=== PATIENT | female | born 1980 | race Two or more races ===

== ENCOUNTER 2017-04-18 07:21 | Emergency (ER) | payer SELFPAY ==
[2017-04-18 07:31] VITALS: BP 114/74
--- NOTE | 2017-04-18 07:51 | ER Document Report ---
HPI - HPI Patient complains to provider of: cough, congestion, knot in throat Onset: Other - friday Onset/Duration: Gradual Pain Level: 4 Context: 37 yo non smoker with congestion and cough with knot in throat since friday, progressively worse. Hurts to cougn, coughing all night. No bleeding or bruising. [employer] WORK[employer]: [employer] , Lupus, Associated Symptoms: Productive cough - iliamna green, Sinus pain/drainage. 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 Lives with: Spouse/Significant other Family History: Reviewed & Not Pertinent Patient has suicidal ideation: No Patient has homicidal ideation: No - Past Medical History Cardiac Medical History: Reports: Other - 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 , resolved 2009 Pulmonary Medical History: Reports: Hx Pneumonia - 03/2015 Renal/ Medical History: Denies: Hx Peritoneal Dialysis Psychiatric Medical History: Reports: Hx Anxiety, Hx Attention Deficit Hyperactivity Disorder, Hx Depression Past Surgical History: Reports: Hx Adenoidectomy, Hx Section, Hx Cholecystectomy, Hx Hysterectomy, Hx Myringotomy, Hx Tonsillectomy, Hx Tubal Ligation - Immunizations Immunizations up to date: Yes Hx Diphtheria, Pertussis, Tetanus Vaccination: Yes Hx Pneumococcal Vaccination: 04/23/15 Vertical Provider Document - CONSTITUTIONAL Agree With Documented VS: Yes Exam Limitations: No Limitations General Appearance: No Apparent Distress - INFECTION CONTROL TRAVEL OUTSIDE OF THE [place] IN LAST 30 DAYS: No - HEENT HEENT: Normocephalic, Pharyngeal Erythema. negative: Tympanic Membrane Red, Tympanic Membrane Bulging Notes: nasal congestion with post nasal drip - NECK Neck: Supple. negative: Lymphadenopathy-Left, Lymphadenopathy-Right - RESPIRATORY Respiratory: Breath Sounds Normal, No Respiratory Distress O2 Sat by Pulse Oximetry: 98 Notes: coarse cough - CARDIOVASCULAR Cardiovascular: Regular Rate, Regular Rhythm - GI/ABDOMEN Gastrointestinal: Abdomen Soft - MUSCULOSKELETAL/EXTREMETIES Musculoskeletal/Extremeties: MAEW, FROM - NEURO Level of Consciousness: Awake, Alert - DERM Integumentary: Warm, Dry, No Rash Course - Vital Signs Vital signs: Temp Pulse Resp BP Pulse Ox 98.8 F 96 16 114/74 98 04/18/17 07:27 04/18/17 07:27 04/18/17 07:27 04/18/17 07:27 04/18/17 07:27 Discharge - Discharge Clinical Impression: Sinusitis Qualifiers: Sinusitis location: unspecified location Chronicity: acute Recurrence: non- recurrent Qualified Code(s): J01.90 - Acute sinusitis, unspecified Condition: Good Disposition: HOME, SELF-CARE Instructions: Sinusitis ([facility]), Amoxicillin ([facility]), Inhaled Bronchodilators ([facility]) Additional Instructions: saline nasal spray four times per day see your doctor if persists amoxicillin until its gone to er if worse Prescriptions: Amoxicillin Trihydrate [Amoxil 500 mg Capsule] 1,000 mg PO BID #30 cap Referrals: MALISSA VU MD [Primary Care Provider] - Follow up as needed
[2017-04-18] MEDS ORDERED: ALBUTEROL SULFATE 0.083% NEB 2.5 MG/3 ML AMPUL NEB ONE (07:54)
--- NOTE | 2017-04-18 08:58 | RADIOLOGY REPORT (SQ) ---
EXAM DESCRIPTION: CHEST PA/LAT COMPLETED DATE/TIME: 04/18/2017 8:46 am REASON FOR STUDY: cough x 1 week COMPARISON: 06/14/2015. EXAM PARAMETERS: NUMBER OF VIEWS: two views TECHNIQUE: Digital Frontal and Lateral radiographic views of the chest acquired. RADIATION DOSE: NA LIMITATIONS: none FINDINGS: LUNGS AND PLEURA: No opacities, masses or pneumothorax. No pleural effusion. MEDIASTINUM AND HILAR STRUCTURES: No masses or contour abnormalities. HEART AND VASCULAR STRUCTURES: Heart normal size. No evidence for failure. BONES: No acute findings. HARDWARE: None in the chest. OTHER: No other significant finding. IMPRESSION: NO SIGNIFICANT RADIOGRAPHIC FINDING IN THE CHEST. TECHNICAL DOCUMENTATION: JOB ID: [id number] [employer]- All Rights Reserved
== END 2017-04-18 09:18 | disposition home or self-care (01) ==
LOC: ER 07:21
DX: J01.90 Acute sinusitis, unspecified (principal); R05 Cough; R09.89 Other specified symptoms and signs involving the circulatory and respiratory systems; R09.81 Nasal congestion; R09.82 Postnasal drip; Z86.79 Personal history of other diseases of the circulatory system; Z87.01 Personal history of pneumonia (recurrent)
CPT/HCPCS: 71020; 94640; 99283

== ENCOUNTER 2017-06-06 07:34 | Emergency (ER) | payer OTHER ==
[2017-06-06 07:40] VITALS: BP 131/79
[2017-06-06] MEDS ORDERED: CYCLOBENZAPRINE HCL 10 MG TABLET PO ONE (07:52)
[2017-06-06] MEDS ORDERED: HYDROCODONE/ACETAMINOPHEN 5-325 MG TABLET PO ONE (07:52)
--- NOTE | 2017-06-06 08:45 | RADIOLOGY REPORT (SQ) ---
EXAM DESCRIPTION: L SPINE 2 VIEWS COMPLETED DATE/TIME: 06/06/2017 8:35 am REASON FOR STUDY: back pain radiating down legs, new COMPARISON: None. NUMBER OF VIEWS: Three views. TECHNIQUE: AP, lateral and sacral radiographic images acquired of the lumbar spine. LIMITATIONS: None. FINDINGS: MINERALIZATION: Normal. SEGMENTATION: Mild convex left curve. No listhesis. ALIGNMENT: Normal. VERTEBRAE: Maintained height. No fracture or worrisome bone lesion. DISCS: Preserved height. No significant osteophytes or end plate irregularity. POSTERIOR ELEMENTS: Pedicles and facets are intact. No pars defect or posterior arch defects. HARDWARE: None in the spine. PARASPINAL SOFT TISSUES: Normal. PELVIS: Intact as visualized. No fractures or worrisome bone lesions. SI joints intact. OTHER: No other significant finding. IMPRESSION: Allowing for minimal scoliotic curve, normal three view lumbar spine. TECHNICAL DOCUMENTATION: JOB ID: [id number] [employer]- All Rights Reserved
--- NOTE | 2017-06-06 08:46 | RADIOLOGY REPORT (SQ) ---
EXAM DESCRIPTION: SACROILIAC JOINTS 3 OR MORE COMPLETED DATE/TIME: 06/06/2017 8:35 am REASON FOR STUDY: back pain radiating down legs, new COMPARISON: None. NUMBER OF VIEWS: Three views. TECHNIQUE: AP and oblique views of the sacroiliac joints. LIMITATIONS: None. FINDINGS: MINERALIZATION: Normal. BONES: No acute fracture or dislocation. No worrisome bone lesions. No significant osteophytes. JOINTS: The sacroiliac joints are patent. No unusual widening, sclerosis, or fusion. SOFT TISSUES: No soft tissue swelling. No radio-opaque foreign body. OTHER: No other significant finding. IMPRESSION: NORMAL STUDY OF THE SACROILIAC JOINTS. TECHNICAL DOCUMENTATION: JOB ID: [id number] [employer]- All Rights Reserved
--- NOTE | 2017-06-06 09:02 | ER Document Report ---
ED General Pain - General Chief Complaint: Low Back Pain Stated Complaint: HIP AND LEG PAIN Time Seen by Provider: 06/06/17 07:51 Mode of Arrival: Ambulatory Information source: Patient Notes: Pt is a 37 year old female who presents to the ER today for low back pain on the left lower side radiating pain down the back of the her left leg to the knee and down the right leg to the calf. She admits to some numbness/tingling to the back of the right leg. She denies loss of bladder or bowel function. TRAVEL OUTSIDE OF THE [place] IN LAST 30 DAYS: No - Related Data Allergies/Adverse Reactions: codeine [Codeine] Allergy (Verified 06/06/17 07:35) passes out oxcarbazepine [From Trileptal] Allergy (Verified 06/06/17 07:35) throat closes Past Medical History - General Information source: Patient - Social History Smoking Status: Never Smoker Chew tobacco use (# tins/day): No Frequency of alcohol use: Occasional Drug Abuse: None Family History: Reviewed & Not Pertinent Patient has suicidal ideation: No Patient has homicidal ideation: No - Past Medical History Cardiac Medical History: Reports: Hx Hypertension Denies: Hx Heart Attack Pulmonary Medical History: Reports: Hx Pneumonia - 03/2015 Denies: Hx Asthma, Hx Bronchitis, Hx COPD Neurological Medical History: Denies: Hx Seizures Renal/ Medical History: Denies: Hx Peritoneal Dialysis Musculoskeltal Medical History: Denies Hx Arthritis Psychiatric Medical History: Reports: Hx Anxiety, Hx Attention Deficit Hyperactivity Disorder, Hx Depression Past Surgical History: Reports: Hx Adenoidectomy, Hx Section, Hx Cholecystectomy, Hx Genitourinary Surgery - tubes tied, Hx Hysterectomy, Hx Myringotomy, Hx Tonsillectomy, Hx Tubal Ligation - Immunizations Immunizations up to date: Yes Hx Diphtheria, Pertussis, Tetanus Vaccination: Yes Hx Pneumococcal Vaccination: 04/23/15 Review of Systems - Review of Systems Constitutional: No symptoms reported EENT: No symptoms reported Cardiovascular: No symptoms reported Respiratory: No symptoms reported Gastrointestinal: No symptoms reported Genitourinary: No symptoms reported Female Genitourinary: No symptoms reported Musculoskeletal: See HPI Skin: No symptoms reported Hematologic/Lymphatic: No symptoms reported Neurological/Psychological: See HPI Physical Exam - Vital signs Vitals: Temp Pulse Resp BP Pulse Ox 98.0 F 87 18 131/79 H 98 12/15/17 07:40 06/06/17 07:40 06/06/17 07:40 06/06/17 07:40 06/06/17 07:40 - Notes Notes: PHYSICAL EXAMINATION: GENERAL:Uncomfortable appearing, but is in no acute distress. HEAD: Atraumatic, normocephalic. EYES: Pupils equal round and reactive to light, extraocular movements intact, sclera anicteric, conjunctiva are normal. NECK: Normal range of motion, supple without lymphadenopathy LUNGS: CTAB and equal. No wheezes rales or rhonchi. HEART: Regular rate and rhythm without murmurs ABDOMEN: Soft, no tenderness. No guarding, no rebound BACK: left SI joint tenderness, no vertebral tenderness, limited ROM GI/: no CVA tenderness EXTREMITIES: Normal range of motion, no pitting edema. No cyanosis. NEUROLOGICAL: Cranial nerves grossly intact. Normal sensory/motor exams. PSYCH: Normal mood, normal affect. SKIN: Warm, Dry, normal turgor, no rashes or lesions noted Course - Re-evaluation Re-evalutation: 06/06/17 11:06 Lumbar and SI joint x-rays negative for any acute pathology. Patient be treated with muscle relaxers, something for pain and steroid Dosepak. - Vital Signs Vital signs: Temp Pulse Resp BP Pulse Ox 98.0 F 87 18 131/79 H 98 06/06/17 07:40 06/06/17 07:40 06/06/17 07:40 06/06/17 07:40 06/06/17 07:40 Discharge - Discharge Clinical Impression: Bilateral sciatica Condition: Stable Disposition: HOME, SELF-CARE Instructions: Ice Packs ([facility]), Sciatica ([facility]), Warm Packs ([facility]) Additional Instructions: Return immediately for any new or worsening symptoms. Follow up with primary care provider, call tomorrow to make followup appointment. Prescriptions: Cyclobenzaprine HCl [Flexeril 10 mg Tablet] 10 mg PO TIDP PRN #15 tab PRN Reason: Hydrocodone/Acetaminophen [[place] 5-325 mg Tablet] 1 tab PO Q4 PRN #15 tablet PRN Reason: Methylprednisolone [Medrol Dosepack (4 mg/Tab) 21 Tab/Dosepak] 4 mg PO ASDIR PRN #21 tab.ds.pk PRN Reason: Referrals: MALISSA VU MD [Primary Care Provider] - Follow up as needed
== END 2017-06-06 09:20 | disposition home or self-care (01) ==
LOC: ER 07:34
DX: M54.32 Sciatica, left side (principal); M54.31 Sciatica, right side; M54.5 Low back pain; M25.552 Pain in left hip; R20.0 Anesthesia of skin; M79.604 Pain in right leg
CPT/HCPCS: 72100; 72202; 99283

== ENCOUNTER 2017-06-15 08:49 | Emergency (ER) | payer OTHER ==
[2017-06-15 09:03] VITALS: BP 117/81
[2017-06-15] MEDS ORDERED: IBUPROFEN 800 MG TABLET PO ONE (10:35)
[2017-06-15] MEDS ORDERED: ACETAMINOPHEN 325 MG TABLET PO ONE (10:35)
--- NOTE | 2017-06-15 10:36 | ER Document Report ---
HPI - HPI Patient complains to provider of: left leg pain Onset: Last week Onset/Duration: Gradual Quality of pain: Achy Pain Level: 5 Context: 37 yo female with recent back pain now c/o lateral left ankle pain, denies sciatica. No saddle anesthesia, no fever, no IV drug use. No abd. pain. Associated Symptoms: None Exacerbated by: Denies Relieved by: Denies Similar symptoms previously: No Recently seen / treated by doctor: No - ROS ROS below otherwise negative: Yes Systems Reviewed and Negative: Yes All other systems reviewed and negative - REPRODUCTIVE Reproductive: DENIES: : Past Medical History - General Information source: Patient - Social History Smoking Status: Never Smoker Frequency of alcohol use: None Drug Abuse: None Lives with: Family Family History: Reviewed & Not Pertinent - Past Medical History Cardiac Medical History: Reports: Hx Hypertension Pulmonary Medical History: Reports: Hx Pneumonia - 03/2015 Renal/ Medical History: Denies: Hx Peritoneal Dialysis Psychiatric Medical History: Reports: Hx Anxiety, Hx Attention Deficit Hyperactivity Disorder, Hx Depression Past Surgical History: Reports: Hx Adenoidectomy, Hx Section, Hx Cholecystectomy, Hx Genitourinary Surgery - tubes tied, Hx Hysterectomy, Hx Myringotomy, Hx Tonsillectomy, Hx Tubal Ligation - Immunizations Immunizations up to date: Yes Hx Diphtheria, Pertussis, Tetanus Vaccination: Yes Hx Pneumococcal Vaccination: 04/23/15 Vertical Provider Document - CONSTITUTIONAL Agree With Documented VS: Yes Exam Limitations: No Limitations General Appearance: No Apparent Distress - INFECTION CONTROL TRAVEL OUTSIDE OF THE [place] IN LAST 30 DAYS: No - HEENT HEENT: Normal ENT Exam - NECK Neck: Supple - RESPIRATORY Respiratory: Breath Sounds Normal, No Respiratory Distress O2 Sat by Pulse Oximetry: 100 - CARDIOVASCULAR Cardiovascular: Regular Rate, Regular Rhythm - GI/ABDOMEN Gastrointestinal: Abdomen Soft, Abdomen Non-Tender - MUSCULOSKELETAL/EXTREMETIES Musculoskeletal/Extremeties: MAEW, FROM, Tender - left mid buttocks over the sciatic nerve and the left SI joint - NEURO Level of Consciousness: Awake, Alert Motor/Sensory: No Motor Deficit, No Sensory Deficit Deep Tendon Reflexes: 2+ - conrado ankle and patellar Course - Re-evaluation Re-evalutation: 06/15/17 10:34 pain 0/5 and no numbness after left leg traction and flexion left knee and external rotation of the left hip - Vital Signs Vital signs: Temp Pulse Resp BP Pulse Ox 98.2 F 108 H 14 117/81 100 06/15/17 09:02 06/15/17 09:02 06/15/17 09:02 06/15/17 09:02 06/15/17 09:02 Discharge - Discharge Clinical Impression: left sacroillitis Condition: Good Disposition: HOME, SELF-CARE Instructions: Chiropractor, Sciatica (COUNT INCLUDES THE [facility]) Additional Instructions: Stretching of the sacroiliac joint information sheet given to you See the chiropractor for follow-up Motrin and Tylenol for discomfort Return to the emergency room any concerns or worsening of the symptoms Referrals: MARIO ANDRADE DC [CHIROPRACTOR] - Follow up as needed
== END 2017-06-15 10:52 | disposition home or self-care (01) ==
LOC: ER 08:49
DX: M46.1 Sacroiliitis, not elsewhere classified (principal); M79.605 Pain in left leg; M25.572 Pain in left ankle and joints of left foot; M54.9 Dorsalgia, unspecified
CPT/HCPCS: 99283